=== PATIENT | male | born 1945 | race African-American/Black ===

== ENCOUNTER 2018-08-12 13:54 | Emergency (ER) | payer MEDICARE, OTHER ==
[2018-08-12] MEDS ORDERED: Ibuprofen 800 MG TAB ONE (14:22)
[2018-08-12] MEDS ORDERED: traMADol HCl 50 MG TAB ONE (14:23)
== END 2018-08-12 14:36 | disposition home or self-care (01) ==
LOC: SCSER 13:54
DX: K02.9 Dental caries, unspecified (principal); K03.81 Cracked tooth; I11.0 Hypertensive heart disease with heart failure; I50.9 Heart failure, unspecified; I25.2 Old myocardial infarction; I48.91 Unspecified atrial fibrillation; J45.909 Unspecified asthma, uncomplicated; Z87.891 Personal history of nicotine dependence
CPT/HCPCS: 99282

== ENCOUNTER 2022-06-27 13:39 | Inpatient (IN) | payer MEDICARE, MEDICAID ==
[2022-06-27] MEDS ORDERED: hydrALAZINE 20 MG/ML VIAL SLOW IVP PRN ×2 (15:24→19:42)
[2022-06-27] MEDS ORDERED: Morphine 2 MG/ML VIAL SLOW IVP PRN ×2 (15:24→19:42)
[2022-06-27] MEDS ORDERED: Ondansetron PF 4 MG/2 ML Vial IVP PRN ×2 (15:24→19:42)
[2022-06-27] MEDS ORDERED: Ipratropium/Albuterol 3 ML NEB NEB PRN ×2 (15:24→19:42)
[2022-06-27] MEDS ORDERED: Albuterol 200 PUFF (6.7GM INHALER) INH PRN (15:28)
[2022-06-27] MEDS ORDERED: Sodium Chloride 0.9% 1,000 ML IV SCH ×2 (15:30→19:49)
[2022-06-27] MEDS ORDERED: HUMAN PROTHROMBIN COMPLX IV SCH (15:45)
[2022-06-27] MEDS ORDERED: ADMIXTURE FEE IV SCH (15:45)
[2022-06-27] MEDS ORDERED: Cyclobenzaprine 10 MG TAB PO PRN (15:55)
[2022-06-27] MEDS ORDERED: traMADol HCl 50 MG TAB PO PRN (15:55)
[2022-06-27] MEDS ORDERED: Lidocaine 2% PF 5 ML VIAL ONE (15:58)
[2022-06-27] MEDS ORDERED: Bupivacaine/Epinephrine 0.25% 30 ML VIAL ONE (15:58)
[2022-06-27] MEDS ORDERED: FENTANYL 50 MCG/ML 1 ML VIAL ONE (16:59)
[2022-06-27 17:07] LABS: #Basophils 0.1 thou/uL (0.0-0.2); #Eosinphils 0.2 thou/uL (0.0-0.7); #Lymphocytes 1.9 thou/uL (1.20-3.40); #Monocytes 0.5 thou/uL (0.11-0.59); #Neutrophils 4.1 thou/uL (1.40-6.50); %Eosinophils 2.3 % (0.0-10.0); %Lymphocytes 28.7 % (21.0-51.0); %Monocytes 7.6 % (0.0-10.0); %Neutrophils 60.3 % (42.0-75.0); Hemoglobin 11.8 g/dL (14.0-18.0); Mean Corpuscular HGB CONC 31.5 g/dL (32.0-36.0); Mean Corpuscular Hemoglobin 23.9 pg (27.0-31.0); Mean Corpuscular Volume 75.8 fl (78.0-98.0); Mean Platelet Volume 10.3 fL (7.4-10.4); Platelet Count 156 10x3/uL (130-400); RBC Distribution Width 13.7 % (11.5-14.5); Red Blood Cell (RBC) Count 4.94 mill/uL (4.70-6.10); White Blood Cell (WBC) Count 6.7 10x3/uL (4.8-10.8)
[2022-06-27] MEDS ORDERED: Rocuronium Bromide 10 MG/ML (10ML VIAL) ONE (17:19)
[2022-06-27] MEDS ORDERED: PROPOFOL 200 MG/20 ML VIAL ONE (17:19)
[2022-06-27] MEDS ORDERED: Ondansetron PF 4 MG/2 ML Vial ONE (17:19)
[2022-06-27] MEDS ORDERED: Lidocaine 1% PF 5 ML VIAL ONE (17:19)
[2022-06-27] MEDS ORDERED: Dexamethasone 20 MG/5 ML VIAL ONE (17:19)
[2022-06-27 17:21] LABS: INR-International Normal Ratio 1.2; Prothrombin Time 15.9 sec (12.0-14.7)
[2022-06-27 17:22] LABS: PTT 30.4 sec (22.9-36.1)
[2022-06-27 17:29] LABS: Anion Gap 10 mmol/L (10-20); BUN (Urea Nitrogen) 28 mg/dL (8.4-25.7); Calc. Creatinine Clearance 0 mL/min (70-130); Calcium 9.4 mg/dL (7.8-10.44); Carbon Dioxide 25 mmol/L (23-31); Chloride 109 mmol/L (98-107); Estimated GFR 51; Glucose 84 mg/dL (83-110); Magnesium 1.9 mg/dL (1.6-2.6); Phosphorus 2.7 mg/dL (2.3-4.7); Potassium 4.1 mmol/L (3.5-5.1); Sodium 140 mmol/L (136-145)
[2022-06-27] MEDS ORDERED: CEFAZOLIN 2 GM VIAL ONE (17:50)
[2022-06-27] MEDS ORDERED: Sodium Chloride 0.9% 100 ML ONE (17:50)
[2022-06-27] MEDS ORDERED: Acetaminophen 325 MG TAB PO SCH (18:00)
[2022-06-27] MEDS ORDERED: SUGAMMADEX SODIUM 200 MG/2 ML VIAL ONE (18:19)
[2022-06-27] MEDS ORDERED: Neomycin-Polymyxin 1 ML AMP ONE (18:28)
[2022-06-27] MEDS ORDERED: Ondansetron HCl/PF 4 MG/2 ML Vial IVP PRN (19:26)
[2022-06-27] MEDS ORDERED: PACU-Morphine 4MG/ML VIAL SLOW IVP PRN (19:26)
[2022-06-27] MEDS ORDERED: Promethazine HCl 25 MG/ML VIAL IM PRN (19:26)
[2022-06-27] MEDS ORDERED: Benzonatate 100 MG CAP PO PRN (19:36)
[2022-06-27] MEDS ORDERED: Nitroglycerin 0.4 MG TAB (25 Tab Bottle) SL PRN (19:36)
[2022-06-27] MEDS ORDERED: Ondansetron ODT 4 MG TAB PO PRN (19:36)
[2022-06-27] MEDS ORDERED: Fentanyl 250 MCG/5 ML VIAL ONE (19:37)
[2022-06-27] MEDS ORDERED: Acetaminophen 325 MG TAB PO PRN (19:42)
[2022-06-27] MEDS ORDERED: Dextrose 5% in Water 1,000 ML IV PRN (19:42)
[2022-06-27] MEDS ORDERED: Dextrose 50% Abboject 50 ML SYRINGE SLOW IVP PRN (19:42)
[2022-06-27] MEDS ORDERED: HYDROcodone/Acetaminophen 10/325 mg Tablet PO PRN (19:42)
[2022-06-27] MEDS ORDERED: Zolpidem Tartrate 5 MG TAB PO SCH (21:00)
[2022-06-27] MEDS ORDERED: Melatonin 3 MG TAB PO SCH (21:00)
[2022-06-27] MEDS: Mometasone 200 MCG/Formoterol 5 MCG 120 PUFF INHALER INH SCH (21:25)
[2022-06-27] MEDS: Famotidine 20 MG TAB PO SCH (22:12)
[2022-06-27] MEDS: Famotidine/PF 20 mg/2ml Vial SLOW IVP SCH ×2 (22:13→22:46)
[2022-06-27 22:39] VITALS: BMI 25.8
[2022-06-27] MEDS: Acetaminophen 500 MG TAB PO SCH (22:44)
[2022-06-27] MEDS: Senokot S 8.6-50 MG TAB PO SCH (22:44)
[2022-06-27] MEDS: traMADol HCl 50 MG TAB PO SCH (22:45)
[2022-06-27] MEDS: AFRIN NASAL MIST 15 ML BOT NS SCH (22:46)
[2022-06-28] MEDS: HYDROcodone/Acetaminophen 10/325 mg Tablet PO PRN ×3 (01:47→12:29)
[2022-06-28 05:58] LABS: Anion Gap 11 mmol/L (10-20); BUN (Urea Nitrogen) 26 mg/dL (8.4-25.7); Calc. Creatinine Clearance 56 mL/min (70-130); Calcium 8.6 mg/dL (7.8-10.44); Carbon Dioxide 21 mmol/L (23-31); Chloride 110 mmol/L (98-107); Estimated GFR 56; Glucose 135 mg/dL (83-110); Potassium 4.8 mmol/L (3.5-5.1); Sodium 137 mmol/L (136-145)
[2022-06-28 05:59] LABS: #Lymphocytes 0.8 thou/uL (1.20-3.40); #Monocytes 0.2 thou/uL (0.11-0.59); #Neutrophils 8.1 thou/uL (1.40-6.50); %Eosinophils 0.1 % (0.0-10.0); %Lymphocytes 8.6 % (21.0-51.0); %Monocytes 2.2 % (0.0-10.0); %Neutrophils 89.1 % (42.0-75.0); Hemoglobin 10.9 g/dL (14.0-18.0); Mean Corpuscular Volume 76.6 fl (78.0-98.0); Mean Platelet Volume 10.2 fL (7.4-10.4); Platelet Count 160 10x3/uL (130-400); RBC Distribution Width 13.6 % (11.5-14.5); Red Blood Cell (RBC) Count 4.76 mill/uL (4.70-6.10); White Blood Cell (WBC) Count 9.1 10x3/uL (4.8-10.8)
[2022-06-28] MEDS: traMADol HCl 50 MG TAB PO SCH (06:48)
[2022-06-28] MEDS: Acetaminophen 500 MG TAB PO SCH (06:48)
[2022-06-28] MEDS: Mometasone 200 MCG/Formoterol 5 MCG 120 PUFF INHALER INH SCH (07:24)
[2022-06-28] MEDS: Famotidine 20 MG TAB PO SCH (08:06)
[2022-06-28] MEDS: Senokot S 8.6-50 MG TAB PO SCH (08:06)
[2022-06-28] MEDS: Famotidine/PF 20 mg/2ml Vial SLOW IVP SCH ×2 (08:09→08:12)
[2022-06-28] MEDS: AFRIN NASAL MIST 15 ML BOT NS SCH (08:13)
[2022-06-28] MEDS ORDERED: Tamsulosin HCl 0.4 MG CAP PO SCH (09:00)
[2022-06-28] MEDS ORDERED: FLU VACC QS2022-23(65YR UP)/PF 240 MCG/0.7 ML SYRINGE IM ONE (09:00)
[2022-06-28] MEDS ORDERED: Polyethylene Glycol 3350 17 GM Packet PO SCH (09:00)
[2022-06-28] MEDS ORDERED: Hydrochlorothiazide 25 MG TAB PO SCH (09:00)
[2022-06-28 11:31] VITALS: BP 136/85; TEMP 97.3
== END 2022-06-28 12:49 | disposition home or self-care (01) | DRG 351 ==
LOC: ERS 13:39 → SDC 15:58 → SJJU 15:58
PROVIDERS: ADMIT Surgery; ATTEND Surgery
PROC: 0YU50JZ Supplement Right Inguinal Region with Synthetic Substitute, Open Approach (ICD-10-PCS; principal; 2022-06-27)
PROC: 30283B1 Transfusion of Nonautologous 4-Factor Prothrombin Complex Concentrate into Vein, Percutaneous Approach (ICD-10-PCS; 2022-06-27)
DX: K40.30 Unilateral inguinal hernia, with obstruction, without gangrene, not specified as recurrent (principal); I13.0 Hypertensive heart and chronic kidney disease with heart failure and stage 1 through stage 4 chronic kidney disease, or unspecified chronic kidney disease; I48.20 Chronic atrial fibrillation, unspecified; I25.10 Atherosclerotic heart disease of native coronary artery without angina pectoris; G89.29 Other chronic pain; I10 Essential (primary) hypertension; E78.5 Hyperlipidemia, unspecified; J45.909 Unspecified asthma, uncomplicated; N18.9 Chronic kidney disease, unspecified; I50.9 Heart failure, unspecified; N40.0 Benign prostatic hyperplasia without lower urinary tract symptoms; Z95.1 Presence of aortocoronary bypass graft; Z95.5 Presence of coronary angioplasty implant and graft; Z87.891 Personal history of nicotine dependence; Z79.01 Long term (current) use of anticoagulants; I25.2 Old myocardial infarction
CPT/HCPCS: 36415; 80048; 83735; 84100; 85025; 86850; 86900; 86901; 88304; 99285; C1781; J1100; J2001; J2272; J2405; J2704; J3010; J3490; J7050; J7168; S0028

== ENCOUNTER 2023-04-20 15:51 | Emergency (ER) | payer MEDICARE, OTHER ==
[2023-04-20] MEDS ORDERED: HYDROcodone/Acetaminophen 5/325 mg Tablet ONE (16:36)
== END 2023-04-20 16:50 | disposition home or self-care (01) ==
LOC: ERS 15:51
DX: R32 Unspecified urinary incontinence (principal); N40.0 Benign prostatic hyperplasia without lower urinary tract symptoms; I11.0 Hypertensive heart disease with heart failure; I50.9 Heart failure, unspecified; I48.91 Unspecified atrial fibrillation; Z79.01 Long term (current) use of anticoagulants; Z87.891 Personal history of nicotine dependence
CPT/HCPCS: 99283